=== PATIENT | male | born 1975 | race Native Hawaiian/Other Pacific Islander ===

== ENCOUNTER 2019-01-03 17:21 | Emergency (ER) | payer SELFPAY ==
--- NOTE | 2019-01-03 19:27 | XRay Report ---
FINAL REPORT EXAM: XRAY FINGER LEFT 1ST DIGIT HISTORY: laceration TECHNIQUE: Three views of the right thumb including a an AP view of the hand. PRIORS: None. FINDINGS: There is an acute, obliquely oriented fracture of the distal tuft of the the distal phalanx of the th umb on the radial side. The small fracture fragment is displaced less than 1 mm from the main bone. T here is associated soft tissue irregularity and swelling. 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 Otherwise, the bones, joints and soft tissues are unremarkable. IMPRESSION: 1. Acute fracture of the distal tuft of the distal phalanx of the thumb as described above 2. 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
[2019-01-03] MEDS ORDERED: XYLOCAINE 1% MPF 5 mL INFILTRATI ONE (19:35)
[2019-01-03] MEDS ORDERED: NORCO 5/325 PO ONE (19:35)
[2019-01-03] MEDS ORDERED: BOOSTRIX IM ONE (19:35)
[2019-01-03] MEDS ORDERED: MAXIPIME IV ONE (20:05)
[2019-01-03] MEDS ORDERED: NS IV ONE (20:05)
--- NOTE | 2019-01-03 20:05 | Emergency Department Report ---
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 smashed his left thumb with a between 2 sheets of metal causing lacerations split the tip of his thumb there is obvious deformity there is bleeding pain with range of motion pain described as 9/10 throbbing aching tingling ED Review of Systems ROS: Stated complaint: LACERATION FINGER Other details as noted in HPI Constitutional: denies: chills, fever Eyes: denies: eye pain, eye discharge, vision change ENT: denies: ear pain, throat pain Respiratory: denies: cough, shortness of breath, wheezing Cardiovascular: denies: chest pain, palpitations Endocrine: no symptoms reported Gastrointestinal: denies: abdominal pain, nausea, diarrhea Genitourinary: denies: urgency, dysuria Musculoskeletal: joint swelling, other (left thumb laceration ). denies: back pain, arthralgia Skin: other. denies: rash, lesions Neurological: denies: headache, weakness, paresthesias Psychiatric: denies: anxiety, depression Hematological/Lymphatic: denies: easy bleeding, easy bruising ED Past Medical Hx - Social History Smoking Status: Unknown if ever smoked Substance Use Type: None - Medications Home Medications: Home Medications Medication Instructions Recorded Confirmed Last Taken Type Cephalexin [Keflex] 500 mg PO QID 10 Days #40 capsule 01/03/19 Unknown Rx HYDROcodone/ACETAMINOPHEN 1 each PO Q6H PRN #12 tablet 01/03/19 Unknown Rx [Hydrocodone-Acetamin 5-325 mg] Upper Extremity Exam - Exam General: Vital signs noted. No distress. Alert and acting appropriately. Head and Torso: No HEENT Abnormality, No Neck Tenderness, No Chest/Lungs Abnormality, No Abdominal Tenderness, No Back Tenderness Shoulder Exam: Yes Normal Range of Motion in Shoulder, No Shoulder Tenderness, No Clavicle Tenderness, No Shoulder Deformity, No AC Joint Tenderness Arm Exam: No Arm/Humerus Tenderness, No Arm Deformity Elbow: No Elbow Tenderness, No Normal Range of Motion in Elbow, No Elbow Deformity Forearm: No Forearm Tenderness, No Forearm Deformity, No Pain with Pronation, No Pain with Supination Wrist: Yes Normal ROM in Wrist, No Wrist Tenderness, No Wrist Deformity, No Snuffbox Tenderness, No Pain with Axial Thumb Compression Hand: Yes Digit Tenderness (laceration left thumb ), Yes Normal ROM in Digit(s), Yes Digit(s) Deformity, No Hand Tenderness, No Hand Deformity, No Tendon Dysf unction CMS Exam: Yes Broken Skin, Yes Normal Distal Pulses, Yes Normal Capillary Refill, Yes Normal Distal Sensation ED Course Vital Signs 01/03/19 01/03/19 17:25 19:46 Temperature 98.1 F Pulse Rate 111 H Respiratory 16 Rate Blood Pressure 179/113 O2 Sat by Pulse 97 Oximetry - Laceration /Wound Repair Left Finger Wound Location: upper extremity Wound Length (cm): 4 Wound's Depth, Shape: into muscle (also has a labs) Wound Explored: clean (is schizophrenic. No the cough became so atraumatic. As follows) Irrigated w/ Saline (ccs): 500 Betadine Prep?: Yes Anesthesia: 1% Lidocaine Volume Anesthetic (ccs): 5 (digital block and wound injection) Wound Debrided: minimal Wound Repaired With: sutures Suture Size/Type: 3:0, proline Number of Sutures: 10 Sterile Dressing Applied?: Yes Progress: His left left thumb laceration with toe fracture nondisplaced wound cleaned with Betadine solution and soaked anesthesia with lidocaine 1% 3 mL via digital block and the right injection and irrigated with 500 mL of sterile saline and Betadine solution and closed with 3. 0 Prolene 10 sutures range of motion remains intact distal pulses are intact patient given wound care instructions verbalized understanding of same. Patient given Boostrix patient given antibiotics cephalization with follow-up with orthopedic surgery in 2 days for wound check and 7-10 days for suture removal ED Medical Decision Making - Radiology Data Radiology results: report reviewed, image reviewed FINAL REPORT EXAM: XRAY FINGER LEFT 1ST DIGIT HISTORY: laceration TECHNIQUE: Three views of the right thumb including a an AP view of the hand. PRIORS: None. FINDINGS: There is an acute, obliquely oriented fracture of the distal tuft of the the distal phalanx of the thumb on the radial side. The small fracture fragment is displaced less than 1 mm from the main bone. There is associated soft tissue irregularity and swelling. 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 Otherwise, the bones, joints and soft tissues are unremarkable. IMPRESSION: 1. Acute fracture of the distal tuft of the distal phalanx of the thumb as described above 2. 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 Transcribed By: GARRISON Dictated By: MICHELE HENSLEY MD Electronically Authenticated By: MICHELE HENSLEY MD Signed Date/Time: 01/03/191926 DD/ 25 TD/TT: 01/03/191925 - Medical Decision Making This is a tuft fracture with distal palm laceration see procedure note for closure is a nondisplaced fracture patient given tetanus shot in the ED IV cephalosporin would DC'd to home with Keflex and Lortab patient follow up with orthopedic surgery in 2 days for wound check in 7-10 days for suture removal and follow-up there is no tendon or nerve involvement range of motion remains intact patient tolerated procedure with minimal distress obvious control sterile dressing is intact Critical care attestation.: If time is entered above; I have spent that time in minutes in the direct care of this critically ill patient, excluding procedure time. ED Disposition Clinical Impression: Thumb fracture Qualifiers: Encounter type: initial encounter Fracture type: open Phalanx: distal Fracture alignment: nondisplaced Laterality: left Qualified Code(s): S62.525B - Nondisplaced fracture of distal phalanx of left thumb, initial encounter for open fracture Thumb laceration Qualifiers: Encounter type: initial encounter Damage to nail status: with damage Foreign body presence: without foreign body Laterality: left Qualified Code(s): S61.112A - Laceration without foreign body of left thumb with damage to nail, initial encounter Disposition: DC-01 TO HOME OR SELFCARE Is pt being admited?: No Does the pt Need Aspirin: No Condition: Stable Instructions: Finger Fracture (ED), Laceration (ED), Suture Care (ED) Prescriptions: Cephalexin [Keflex] 500 mg PO QID 10 Days #40 capsule HYDROcodone/ACETAMINOPHEN [Hydrocodone-Acetamin 5-325 mg] 1 each PO Q6H PRN #12 tablet PRN Reason: pain Referrals: BETHANIE BOOGIE MD [Staff Physician] - 3-5 Days Forms: Work/School Release Form(ED) Time of Disposition: 21:30
[2019-01-03] MEDS ORDERED: NACL 0.9% 500 ML IR ONE (20:34)
[2019-01-03] MEDS ORDERED: ceFAZolin 2 GM in NACL 0.9% 100 ML IV ONE (20:35)
[2019-01-03 21:58] VITALS: BP 150/105
== END 2019-01-03 21:58 | disposition home or self-care (01) ==
LOC: ED 17:21
DX: S62.525A Nondisplaced fracture of distal phalanx of left thumb, initial encounter for closed fracture (principal); S61.012A Laceration without foreign body of left thumb without damage to nail, initial encounter; W22.8XXA Striking against or struck by other objects, initial encounter; Y93.89 Activity, other specified; Y92.89 Other specified places as the place of occurrence of the external cause; Y99.8 Other external cause status
CPT/HCPCS: 12002; 73140; 90471; 90715; 96365; 99283; J0690; J0692